=== PATIENT | female | born 2000 | race African-American/Black ===

== ENCOUNTER 2018-07-11 15:31 | Emergency (ER) | payer BC ==
[~2018-07-11] VITALS: Ht 170.2 cm; Wt 92.9 kg
[2018-07-11 16:22] LABS: BASOPHILS # (AUTO) 0.02 x10^3/uL (0-0.3); BASOPHILS % (AUTO) 0 % (0-1); EOSINOPHILS # (AUTO) 0.02 x10^3/uL (0-0.8); EOSINOPHILS % (AUTO) 1 % (1-7); LYMPHOCYTES # (AUTO) 1.11 x10^3/uL (1-6.1); LYMPHOCYTES % (AUTO) 22 % (22-44); MD NO; MEAN CORPUSCULAR HEMOGLOBIN 27.6 pg (27.0-34.8); MEAN CORPUSCULAR HGB CONC 31.6 g/dL (32.4-35.8); MEAN CORPUSCULAR VOLUME 87.2 fL (80-100); MEAN PLATELET VOLUME 8.8 fL (7.4-10.4); MONOCYTES # (AUTO) 0.41 x10^3/uL (0-1.4); MONOCYTES % (AUTO) 8 % (2-9); NEUTROPHILS # (AUTO) 3.43 x10^3/uL (1.8-8.0); NEUTROPHILS % (AUTO) 69 % (42-75); PLATELET COUNT 209 x10^3/uL (130-400); RED BLOOD COUNT 4.82 x10^6/uL (3.82-5.3); RED CELL DISTRIBUTION WIDTH 13.7 % (9.6-15.2)
--- NOTE | 2018-07-11 16:22 | NUR ---
Pt presents for abd pain, pariumbilical, constant, non tender, stating today. No NVD.
[2018-07-11 16:28] LABS: ALANINE AMINOTRANSFERASE 26 U/L (12-78); ALBUMIN 3.9 g/dL (3.4-5.0); ANION GAP 7 mmol/L (5-15); CALCIUM 8.6 mg/dL (8.5-10.1); CHLORIDE 107 mmol/L (98-107)
[2018-07-11] MEDS ORDERED: DICYCLOMINE 20 MG TABLET PO ONE (16:30)
[2018-07-11 16:31] LABS: MICROSCOPIC AUTO
[2018-07-11 16:33] LABS: ALKALINE PHOSPHATASE 80 U/L (45-117); BILIRUBIN,TOTAL 0.2 mg/dL (0.2-1.0); TOTAL PROTEIN 8.7 g/dL (6.4-8.2)
[2018-07-11 16:38] LABS: CULTURE INDICATED? YES
[2018-07-11] MEDS ORDERED: DICYCLOMINE 10 MG CAPSULE ONE ×2 (16:56→17:00)
[2018-07-11 18:19] VITALS: BP 124/74
== END 2018-07-11 18:21 | disposition home or self-care (01) ==
LOC: ED 16:27
DX: N30.01 Acute cystitis with hematuria (principal)
CPT/HCPCS: 36415; 71045; 74021; 80053; 81001; 83690; 84703; 85025; 87086; 99284